=== PATIENT | female | born 1940 | race American Indian/Alaskan Native ===

== ENCOUNTER 2019-12-17 12:55 | Emergency (ER) | payer MEDICARE ==
--- NOTE | 2019-12-17 13:37 | Event Note ---
ED Screening Note Date of service: 12/17/19 Time: 13:35 ED Screening Note: 79 y o f with a pmh of gout and arthritis presents for left knee pain, swelling and redness x 2 days PMH: htn, DM, Hyperlipid This initial assessment/diagnostic orders/clinical plan/treatment(s) is/are subject to change based on patients health status, clinical progression and re- assessment by fellow clinical providers in the ED. Further treatment and workup at subsequent clinical providers discretion. Patient/guardian urged not to elope from the ED as their condition may be serious if not clinically assessed and managed. Initial orders include: steroids, IM or IV cochicine pain control
[2019-12-17] MEDS ORDERED: COLCHICINE 0.6 MG CAP PO ONE (19:59)
[2019-12-17] MEDS ORDERED: dexAMETHasone 4 MG/ML VIAL IM ONE (19:59)
[2019-12-17] MEDS ORDERED: traMADol 50 MG TAB PO ONE (20:00)
--- NOTE | 2019-12-17 20:04 | Emergency Department Report ---
ED Lower Extremity HPI - General Chief Complaint: Extremity Problem,Nontraumatic Stated Complaint: PAIN IN LEGS Source: patient Mode of arrival: Wheelchair Limitations: No Limitations - History of Present Illness Initial Comments: This is a 79-year-old -Stateless female that presents to the emergency room with left knee pain, redness, and swelling for 2 days. Patient states she recently moved here from [facility] and waiting for her Medicare to switch so she can find a primary care doctor. Past medical history of congestive heart failure, diabetes type 2, hypertension, hyperlipidemia, osteoarthritis, and gout. Patient states she is taking 2 Tylenol extra strength twice a day with no improvement of symptoms. Patient reports pain currently as 10 out of 10 on pain scale, constant dull achy intensity. Patient states they feel like a gout flare. Patient states she is unable to extend her left knee. She denies radiating pain, weakness, recent injury, numbness or tingling, fever, or chills. MD Complaint: knee injury (Left knee) Onset/Timin -: days(s) Injury: Knee: Left Type of Injury: unknown Place: home Severity: severe Severity scale (0 -10): 10 Improves With: NSAID Worsens With: weight bearing, movement Associated Symptoms: swelling, able to partially bear weight, ambulatory. denies: snap/pop sensation, numbness, tingling Treatments Prior to Arrival: NSAIDS - Related Data Allergies Allergy/AdvReac Type Severity Reaction Status Date / Time No Known Allergies Allergy Unverified 12/17/19 13:41 ED Review of Systems ROS: Stated complaint: PAIN IN LEGS Other details as noted in HPI Constitutional: denies: chills, fever Respiratory: denies: cough, shortness of breath, wheezing Cardiovascular: denies: chest pain, palpitations Gastrointestinal: denies: abdominal pain, nausea, diarrhea Musculoskeletal: joint swelling (Left knee), arthralgia (Left knee). denies: back pain Skin: denies: rash, lesions Neurological: denies: headache, weakness, paresthesias Psychiatric: denies: anxiety, depression ED Past Medical Hx - Past Medical History Previous Medical History?: Yes Hx Hypertension: Yes Hx Congestive Heart Failure: Yes Hx Diabetes: Yes Additional medical history: hyperlipidemia. Gout - Surgical History Past Surgical History?: Yes Hx Coronary Stent: Yes (1 heart stent, 2 LLL) Additional Surgical History: left hip replacement - Social History Smoking Status: Never Smoker Substance Use Type: None ED Physical Exam - General Limitations: No Limitations General appearance: alert, in no apparent distress, obese - Respiratory Respiratory exam: Present: normal lung sounds bilaterally. Absent: respiratory distress - Cardiovascular Cardiovascular Exam: Present: regular rate, normal rhythm. Absent: systolic murmur, diastolic murmur, rubs, gallop - GI/Abdominal GI/Abdominal exam: Present: soft, normal bowel sounds. Absent: distended, tenderness, guarding, rebound, rigid - Extremities Exam Extremities exam: Present: normal inspection - Expanded Lower Extremity Exam Left Hip exam: Present: normal inspection, full ROM Upper Leg exam: Present: normal inspection, full ROM Knee exam: Present: tenderness (Tenderness and swelling to anterior patella), swelling, crepidus, erythema. Absent: full ROM (Limited range of motion 2/2 pain), abrasion, laceration, ecchymosis, deformity, full knee extension Lower Leg exam: Present: normal inspection, full ROM Ankle exam: Present: normal inspection, full ROM Foot/Toe exam: Present: normal inspection, full ROM Neuro vascular tendon exam: Present: no vascular compromise Gait: Positive: observed and limited by pain - Neurological Exam Neurological exam: Present: alert, oriented X3, normal gait - Psychiatric Psychiatric exam: Present: normal affect, normal mood - Skin Skin exam: Present: warm, dry, intact, normal color. Absent: rash ED Course Vital Signs 12/17/19 12/17/19 13:35 20:17 Temperature 98.7 F Pulse Rate 97 H Respiratory 18 18 Rate Blood Pressure 218/102 O2 Sat by Pulse 97 Oximetry ED Lower Extremity MDM - Medical Decision Making This is a 79 y.o. female that presents with swelling redness, and pain to the left knee 1 week. Hx of congestive heart failure, diabetes type 2, hypertension, hyperlipidemia, osteoarthritis, and gout. Patient is stable and examined by me. No acute signs of distress noted. Given steroids and analgesics. Blood pressure remained elevated while in ER. Patient refused treatment for elevated blood pressure. Patient son states they have to leave and she will take her person blood pressure medication at home. Patient was informed of risk associated with leaving AGAINST MEDICAL ADVICE. Nursing staff states patient is walking out the door and signed AMA form. Critical care attestation.: If time is entered above; I have spent that time in minutes in the direct care of this critically ill patient, excluding procedure time. ED Disposition Clinical Impression: Left anterior knee pain, Asymptomatic hypertension, Left against medical advice Gout attack Qualifiers: Gout site: knee Gout etiology: idiopathic Laterality: left Qualified Code(s): M10.062 - Idiopathic gout, left knee Disposition: LEFT AGAINST MED ADVICE Is pt being admited?: No Condition: Stable Instructions: Acute Gouty Arthritis (ED), Self-Care Measures with a Chronic Disease (ED), Low Purine Diet (ED), Hypertension (ED) Referrals: LACEY LATIF MD [Staff Physician] - 3-5 Days
[2019-12-17] MEDS ORDERED: cloNIDine 0.2 MG TAB PO ONE (20:57)
[2019-12-17 21:01] VITALS: BP 233/120
== END 2019-12-17 21:10 | disposition left against medical advice (07) ==
LOC: ED 12:55
DX: M10.9 Gout, unspecified (principal); I10 Essential (primary) hypertension; I50.9 Heart failure, unspecified; E11.9 Type 2 diabetes mellitus without complications; E78.5 Hyperlipidemia, unspecified; Z98.890 Other specified postprocedural states; Z96.642 Presence of left artificial hip joint; Z53.29 Procedure and treatment not carried out because of patient's decision for other reasons
CPT/HCPCS: 96372; 99282; J1100